=== PATIENT | female | born 1940 | race Caucasian/White ===

== ENCOUNTER → 2018-05-14 15:14 | Outpatient (CLI) | payer MEDICARE, SELFPAY ==
--- NOTE | 2018-05-14 | DI.RAD.S_ITS ---
PROCEDURE: XR ANKLE LT MIN 3V INDICATIONS: LEFT ANKLE INJURY TECHNIQUE: 3 views of the ankle were acquired. COMPARISON: None. FINDINGS: Bones: No dislocations. Ankle mortise is normally aligned. No suspicious bony lesions. There is a diagonal fracture across the base of the lateral malleolus with moderate overlying soft tissue swelling. The ankle mortise joint is not abnormally widened, but the fracture plane is displaced laterally by approximately 1.5-2 mm. Soft tissues: No tibiotalar joint effusion. Achilles tendon appears normal. IMPRESSION: Acute diagonal fracture across the base of the lateral malleolus with overlying soft tissue swelling and mild malalignment. Dictated by: Stanislav Kan M.D. on 05/14/2018 at 15:59 Approved by: Stanislav Kan M.D. on 05/14/2018 at 16:00
== END ==
PROVIDERS: Family Provider Physician Assistant; PCP Physician Assistant; Visit Provider Internal Medicine
DX: S82.62XA Displaced fracture of lateral malleolus of left fibula, initial encounter for closed fracture (principal)
CPT/HCPCS: 73610

== ENCOUNTER → 2018-10-21 14:03 | Outpatient (CLI) | payer MEDICARE, SELFPAY | PROVIDERS: PCP Student in an Organized Health Care Education/Training Program; Visit Provider Student in an Organized Health Care Education/Training Program | DX: Z78.0 Asymptomatic menopausal state (principal) | CPT/HCPCS: 77080 ==

== ENCOUNTER → 2019-03-23 15:40 | Oncology outpatient (ONC) | payer MEDICARE, SELFPAY ==
[2018-03-10 13:02] LABS: Add Manual Diff / Slide Review NO; Basophils Percent Auto 0.7 % (0-2); Eosinophils Percent Auto 0.9 % (2-4); Hematocrit 43.4 % (36-46); Hemoglobin 14.5 g/dL (12.0-16.0); Lymphocytes Percent Auto 44.2 % (25-40); Mean Corpuscular HGB Conc 33.4 % (30-36); Mean Corpuscular Hemoglobin 31.8 PG (26-34); Mean Corpuscular Volume 95.3 fL (80-100); Monocytes Percent Auto 7.7 % (3-14); Neutrophils Absolute Auto 4200 /uL (3000-5900); Neutrophils Percent Auto 46.5 % (50-75); Platelet Count 267 X10^3/uL (150-400); Red Blood Cell Count 4.55 X10^6/uL (4.0-5.2); Red Cell Distribution Width 12.5 % (11.6-14.8); White Blood Cell Count 9.1 X10^3/uL (4.5-11.0)
[2018-03-10 13:17] LABS: Alanine Aminotransferase 41 IU/L (9-52); Albumin 4.6 g/dL (3.5-5.0); Albumin Globulin Ratio 1.8 (1.0-2.8); Alkaline Phosphatase 85 U/L (38-126); Aspartate Aminotransferase 31 IU/L (14-36); Bilirubin Total 0.5 mg/dL (0.2-1.3); Blood Urea Nitrogen 14 mg/dL (7-17); Calcium 9.2 mg/dL (8.4-10.2); Carbon Dioxide 27 mmol/L (22-32); Chloride 98 mmol/L (98-107); Estimated Glomerular Filt Rate > 60.0 mL/min (>60); Globulin 2.6 g/dL (1.7-4.1); Glucose 104 mg/dL (80-110); HEMOLYSIS < 15 (0-50); Potassium 4.5 mmol/L (3.4-5.1); Sodium 139 mmol/L (137-145); Total Protein 7.2 g/dL (6.3-8.2)
[2018-03-10 13:18] VITALS: BP 141/66; PULSE 62; RESP 18; TEMP 36.4; O2SAT 97
--- NOTE | 2018-03-10 13:39 | ONC.APRN.PN ---
PN -Subjective Interval history: The patient is a 77 year old Female who is being seen in the clinic 03/10/2018 for a diagnosis of CLL. Patient was evaluated by Dr. 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 No abnormal T-cell population identified. No abnormal blast or myeloid population identified. Abnormal CD5+B cell was identified. On exam today Kelsie states I think I might be having night sweats, I remeber you told me to watch for them. She goes on to report very infrequent, specifically since putting a heating blanket on her bed in January, she will awake and fell warm with a little sweat on my neck. She denies more severe sweats and states this has only happened a few times recently. She feels immediately better after removing her covers. No soaking of pillow, linens or bedclothes. She reports her appetite is stable, weight is stable. Activity tolerance is unchanged. No unexplained weight loss. No new pain. No new lumps or bumps. No illnesses or infections since her previous visit. Overall feeling quite well. It is noted she has a history of coronary artery disease with a ?cardiac stent?. She was taking Plavix however this has been discontinued she is now taking a daily aspirin 81 mg. She states her PCP Leanne Moy follows her thyroid disease. Past Medical History The patient's past medical history is significant for: 1) CLL 2) Hypothyroidism 3) CAD - Patient Self-Reported Symptoms SR Constitution: Night Sweats SR Cardiovascular issues: Shortness of breath with activity or lying flat SR Skin issues: Dry skin SR Gastrointestinal issues: Heartburn SR Genitourinary issues: Frequent urination, Change in stream SR Musculoskeletal issues: Back or neck pain, Cold hands or feet Home Medications and Allergies Home Medications Medication Instructions Recorded Confirmed Type CHOLECALCIFEROL (VITAMIN D3) 2,000 iu PO QAM #0 04/05/11 History (Vitamin D) levothyroxine [Synthroid] 50 mcg PO QAM #90 tab 07/18/12 Rx atorvastatin [Lipitor] 40 mg PO QDAY #0 04/16/17 History vitamin B complex [B 1 tab PO QDAY #0 04/16/17 History Complex-Vitamin B12] [OCTUVITE] PO Q DAY #0 05/02/17 History Lacto.acidophilus-Bif.animalis 03/10/18 History [Probiotic] timolol 03/10/18 History Exam - Constitutional positive no acute distress, positive average body habitus - Routine HEENT Exam Eye: Present: conjunctivae pink. Absent: conjunctival icterus, scleral injection ENT: Present: mucous membranes moist, oropharynx clear - Routine Neck Exam Present: supple. Absent: lymphadenopathy - Routine Chest/Breast/Axilla Exam Axillae: Absent: lymphadenopathy, mass, tenderness - Routine Respiratory Exam Present: Clear to auscultation bilaterally. Absent: rales, rhonchi, wheezes - Routine Cardiovascular Exam Present: RRR, S1, S2. Absent: murmur, gallop, rubs, JVD - Routine Abdominal Exam Present: soft, normoactive bowel sounds. Absent: tenderness, distended, organomegaly, mass - Routine Extremities Exam Absent: edema, calf tenderness - Routine Skin Exam Present: intact, normal turgor. Absent: petechiae, rash - Routine Neurological Exam Present: alert, oriented X3 - Routine Psychiatric Exam Present: normal affect Results - Labs Laboratory Last Values WBC 9.1 X10^3/uL (4.5-11.0) 03/10/18 12:50 RBC 4.55 X10^6/uL (4.0-5.2) 03/10/18 12:50 Hgb 14.5 g/dL (12.0-16.0) 03/10/18 12:50 Hct 43.4 % (36-46) 03/10/18 12:50 MCV 95.3 fL (80-100) 03/10/18 12:50 MCH 31.8 PG (26-34) 03/10/18 12:50 MCHC 33.4 % (30-36) 03/10/18 12:50 RDW 12.5 % (11.6-14.8) 03/10/18 12:50 Plt Count 267 X10^3/uL (150-400) 03/10/18 12:50 Neut % (Auto) 46.5 % (50-75) L 03/10/18 12:50 Lymph % (Auto) 44.2 % (25-40) H 03/10/18 12:50 [place] % (Auto) 7.7 % (3-14) 03/10/18 12:50 Eos % (Auto) 0.9 % (2-4) L 03/10/18 12:50 Baso % (Auto) 0.7 % (0-2) 03/10/18 12:50 Neut # (Auto) 4200 /uL (0975-0952) 03/10/18 12:50 Sodium 139 mmol/L (137-145) 03/10/18 12:50 Potassium 4.5 mmol/L (3.4-5.1) 03/10/18 12:50 Chloride 98 mmol/L (98-107) 03/10/18 12:50 Carbon Dioxide 27 mmol/L (22-32) 03/10/18 12:50 BUN 14 mg/dL (7-17) 03/10/18 12:50 Creatinine 0.70 mg/dL (0.52-1.04) 03/10/18 12:50 Estimated GFR > 60.0 mL/min (>60) 03/10/18 12:50 BUN/Creatinine Ratio 20.0 (6-22) 03/10/18 12:50 Glucose 104 mg/dL (80-110) 03/10/18 12:50 Calcium 9.2 mg/dL (8.4-10.2) 03/10/18 12:50 Total Bilirubin 0.5 mg/dL (0.2-1.3) 03/10/18 12:50 AST 31 IU/L (14-36) 03/10/18 12:50 ALT 41 IU/L (9-52) 03/10/18 12:50 Alkaline Phosphatase 85 U/L (38-126) 03/10/18 12:50 Total Protein 7.2 g/dL (6.3-8.2) 03/10/18 12:50 Albumin 4.6 g/dL (3.5-5.0) 03/10/18 12:50 Globulin 2.6 g/dL (1.7-4.1) 03/10/18 12:50 Albumin/Globulin Ratio 1.8 (1.0-2.8) 03/10/18 12:50 Assessment and Plan (1) Chronic lymphocytic leukemia Current visit: Yes Status: Acute The patient is an 80-year-old female who carries a diagnosis of CLL. Reassuringly on exam today no clinical signs or symptoms to suggest active disease. CBC is largely unremarkable white count 9.1 hemoglobin 14.5 hematocrit 43.4 platelets 267,000. Neutrophils mildly low at 46.5% lymphocytes mildly elevated at 44.2%. The pts report of mild infrequent sweating since January when she placed a heating blanket on her bed does not constitute a night sweat. No other B symptoms. Pt once again asking for annual visits in this clinic as opposed to more frequently noting she is followed closely by her PCP Bhavya Moy PA-C. This is very reasonable and I agree with the pt. She is to return sooner for any acute changes or if Leanne indicates she requires further eval. Otherwise RTC in 1 year for provider visit cbc cmp we will also check a peripheral flow cytometry. - Time Spent with Patient 25 mins
[2019-03-04 12:40] LABS: Add Manual Diff / Slide Review NO; Basophils Absolute Auto 0 /uL (0-100); Basophils Percent Auto 0.6 % (0-2); Eosinophils Absolute Auto 0 /uL (0-450); Eosinophils Percent Auto 0.6 % (2-4); Hematocrit 41.6 % (36-46); Hemoglobin 14.2 g/dL (12.0-16.0); Lymphocytes Absolute Auto 3400 /uL (1100-4500); Lymphocytes Percent Auto 42.9 % (25-40); Mean Corpuscular HGB Conc 34.1 % (30-36); Mean Corpuscular Hemoglobin 32.8 PG (26-34); Monocytes Absolute Auto 600 /uL (0-900); Monocytes Percent Auto 7.1 % (3-14); Neutrophils Absolute Auto 3800 /uL (1500-7000); Neutrophils Percent Auto 48.8 % (50-75); Platelet Count 227 X10^3/uL (150-400); Red Blood Cell Count 4.34 X10^6/uL (4.0-5.2); Red Cell Distribution Width 12.7 % (11.6-14.8); White Blood Cell Count 7.9 X10^3/uL (4.5-11.0)
[2019-03-04 13:11] LABS: Alanine Aminotransferase 25 IU/L (<35); Albumin 4.5 g/dL (3.5-5.0); Albumin Globulin Ratio 1.9 (1.0-2.8); Alkaline Phosphatase 77 U/L (38-126); Aspartate Aminotransferase 27 IU/L (14-36); Blood Urea Nitrogen 12 mg/dL (7-17); Calcium 9.5 mg/dL (8.4-10.2); Carbon Dioxide 28 mmol/L (22-32); Chloride 98 mmol/L (98-107); Estimated Glomerular Filt Rate > 60.0 mL/min (>60); Globulin 2.4 g/dL (1.7-4.1); Glucose 111 mg/dL (80-110); HEMOLYSIS 42 (0-50); Potassium 4.8 mmol/L (3.4-5.1); Sodium 135 mmol/L (137-145); Total Protein 6.9 g/dL (6.3-8.2)
--- NOTE | 2019-03-23 16:16 | ONC.PN ---
PN -Subjective Interval history: ID/CC: 78 year old with CLL History of Present Illness: The patient is a 78 year old female. She was diagnosed with CLL/SLL on 04/16/2017 with flowcytomery. No abnormal T-cell population identified. No abnormal blast or myeloid population identified. Abnormal CD5+B cell was identified. Since then she has been on active surveillance. Interim Events: She presents today for scheduled follow up visit. She broke her ankle in 05/2018, and lost 10 lbs and has not gained back. She has pretty good energy level. No night sweats. No fever. No SOB, only when she is doing something hard in the yard, and it is not bad. No CP. No abd pain or bloating. No lumps or bumps. - Patient Self-Reported Symptoms SR Constitution: Night Sweats SR Cardiovascular issues: Shortness of breath with activity or lying flat SR Skin issues: Dry skin SR Gastrointestinal issues: Heartburn SR Genitourinary issues: Frequent urination, Change in stream SR Musculoskeletal issues: Back or neck pain, Cold hands or feet - Additional ROS All systems PM: reviewed and no additional remarkable complaints except as stated Home Medications and Allergies Home Medications Medication Instructions Recorded Confirmed Type CHOLECALCIFEROL (VITAMIN D3) 2,000 iu PO QAM #0 04/05/11 History (Vitamin D) levothyroxine [Synthroid] 50 mcg PO QAM #90 tab 07/18/12 Rx atorvastatin [Lipitor] 40 mg PO QDAY #0 04/16/17 History vitamin B complex [B 1 tab PO QDAY #0 04/16/17 History Complex-Vitamin B12] [OCTUVITE] PO Q DAY #0 05/02/17 History Lacto.acidophilus-Bif.animalis 03/10/18 History [Probiotic] timolol 03/10/18 History Exam Vital signs: Last Vital Signs Temp 97.7 F 03/23/19 16:18 Pulse 69 03/23/19 16:18 Resp 16 03/23/19 16:18 BP 128/71 03/23/19 16:18 Pulse Ox 97 03/23/19 16:18 ECOG 1 Narrative: Gen: WDWN, NAD, pleasant and cooperative. Here by herself. HEENT: NCAT, EOMI, PERRLA, anicteric sclera. Neck: Supple, No palpable thyromegaly or lymphadenopathy. Respiratory: CTAB, no wheezes audible. No JVD Cardiovascular: RRR, S1 and S2 normal, no M/G/R. Abdomen: Soft, NTND, BS normal, no palpable organomegaly Extremities: No LE pitting edema. Lymphatic: no palpable lymph nodes in the neck, axillae, or groins. Neurological: AOx3, CN II-XII grossly intact. No focal motor or sensory deficit. Psychiatric: Good judgment and insight; normal affect; normal thought process; cooperative, no depression, no anxiety. Results - Labs Laboratory Last Values WBC 7.9 X10^3/uL (4.5-11.0) 03/04/19 12:25 RBC 4.34 X10^6/uL (4.0-5.2) 03/04/19 12:25 Hgb 14.2 g/dL (12.0-16.0) 03/04/19 12:25 Hct 41.6 % (36-46) 03/04/19 12:25 MCV 96.0 fL (80-100) 03/04/19 12:25 MCH 32.8 PG (26-34) 03/04/19 12:25 MCHC 34.1 % (30-36) 03/04/19 12:25 RDW 12.7 % (11.6-14.8) 03/04/19 12:25 Plt Count 227 X10^3/uL (150-400) 03/04/19 12:25 Neut % (Auto) 48.8 % (50-75) L 03/04/19 12:25 Lymph % (Auto) 42.9 % (25-40) H 03/04/19 12:25 [place] % (Auto) 7.1 % (3-14) 03/04/19 12:25 Eos % (Auto) 0.6 % (2-4) L 03/04/19 12:25 Baso % (Auto) 0.6 % (0-2) 03/04/19 12:25 Neut # (Auto) 3800 /uL (8963-7220) 03/04/19 12:25 Lymph # (Auto) 3400 /uL (4550-3175) 03/04/19 12:25 [place] # (Auto) 600 /uL (0-900) 03/04/19 12:25 Eos # (Auto) 0 /uL (0-450) 03/04/19 12:25 Baso # (Auto) 0 /uL (0-100) 03/04/19 12:25 Sodium 135 mmol/L (137-145) L 03/04/19 12:25 Potassium 4.8 mmol/L (3.4-5.1) 03/04/19 12:25 Chloride 98 mmol/L (98-107) 03/04/19 12:25 Carbon Dioxide 28 mmol/L (22-32) 03/04/19 12:25 BUN 12 mg/dL (7-17) 03/04/19 12:25 Creatinine 0.60 mg/dL (0.52-1.04) 03/04/19 12:25 Estimated GFR > 60.0 mL/min (>60) 03/04/19 12:25 BUN/Creatinine Ratio 20.0 (6-22) 03/04/19 12:25 Glucose 111 mg/dL (80-110) H 03/04/19 12:25 Calcium 9.5 mg/dL (8.4-10.2) 03/04/19 12:25 Total Bilirubin 1.0 mg/dL (0.2-1.3) 03/04/19 12:25 AST 27 IU/L (14-36) 03/04/19 12:25 ALT 25 IU/L (<35) 03/04/19 12:25 Alkaline Phosphatase 77 U/L (38-126) 03/04/19 12:25 Total Protein 6.9 g/dL (6.3-8.2) 03/04/19 12:25 Albumin 4.5 g/dL (3.5-5.0) 03/04/19 12:25 Globulin 2.4 g/dL (1.7-4.1) 03/04/19 12:25 Albumin/Globulin Ratio 1.9 (1.0-2.8) 03/04/19 12:25 Assessment and Plan (1) Chronic lymphocytic leukemia Overview: Diagnosed with CLL/SLL on 04/16/2017 with flowcytomery. No B-symptoms. She has been on active surveillance. Assessment: I reviewed the lab tests from March 2019 with the patient. Patient has normal white cell count, normal hemoglobin and normal platelet counts. In addition the absolute lympho cell count is also within the normal range. Clinically patient denies any B symptoms. On my physical examination, no lymphadenopathy and no hepatosplenomegaly. I talked with the patient that I would recommend continued active surveillance. Patient said that she would like to follow up with her primary care provider and will call us if there is any new change. I agree with the patient's request Assessment: Follow up with her PCP Call for any concerns or questions.
[2019-03-23 16:18] VITALS: BP 128/71; PULSE 69; RESP 16; TEMP 36.5; O2SAT 97
== END ==
PROVIDERS: Nurse Practitioner Gerontology; Family Provider Physician Assistant; PCP Physician Assistant; Visit Provider Internal Medicine Hematology & Oncology
DX: C91.10 Chronic lymphocytic leukemia of B-cell type not having achieved remission (principal)
CPT/HCPCS: 36415; 80053; 85025; 99214

== ENCOUNTER → 2019-09-18 10:12 | Outpatient (CLI) | payer MEDICARE, SELFPAY ==
[2019-09-18 11:21] LABS: Add Manual Diff / Slide Review NO; Basophils Absolute Auto 100 /uL (0-100); Basophils Percent Auto 0.9 % (0-2); Eosinophils Absolute Auto 100 /uL (0-450); Eosinophils Percent Auto 0.7 % (2-4); Hematocrit 41.7 % (36-46); Hemoglobin 14.3 g/dL (12.0-16.0); Lymphocytes Absolute Auto 3900 /uL (1100-4500); Lymphocytes Percent Auto 52.6 % (25-40); Mean Corpuscular HGB Conc 34.3 % (30-36); Mean Corpuscular Hemoglobin 32.9 PG (26-34); Mean Corpuscular Volume 95.8 fL (80-100); Monocytes Absolute Auto 600 /uL (0-900); Monocytes Percent Auto 7.6 % (3-14); Neutrophils Absolute Auto 2800 /uL (1500-7000); Neutrophils Percent Auto 38.2 % (50-75); Platelet Count 220 X10^3/uL (150-400); Red Blood Cell Count 4.35 X10^6/uL (4.0-5.2); Red Cell Distribution Width 13.1 % (11.6-14.8); White Blood Cell Count 7.3 X10^3/uL (4.5-11.0)
[2019-09-18 11:54] LABS: Alanine Aminotransferase 25 IU/L (<35); Albumin 4.2 g/dL (3.5-5.0); Albumin Globulin Ratio 1.7 (1.0-2.8); Alkaline Phosphatase 85 U/L (38-126); Aspartate Aminotransferase 26 IU/L (14-36); BUN Creatinine Ratio 14.5 (6-22); Blood Urea Nitrogen 9 mg/dL (7-17); Calcium 9.6 mg/dL (8.4-10.2); Carbon Dioxide 29 mmol/L (22-32); Chloride 100 mmol/L (98-107); Cholesterol 178 mg/dL (140-199); Estimated Glomerular Filt Rate > 60.0 mL/min (>60); Globulin 2.5 g/dL (1.7-4.1); Glucose 94 mg/dL (80-110); HDL Cholesterol 67 mg/dL (40-60); HEMOLYSIS < 15 (0-50); LDL Cholesterol Calculated 80 mg/dL (<100); Sodium 135 mmol/L (137-145); Total Protein 6.7 g/dL (6.3-8.2); Triglycerides 154 mg/dL (35-150)
[2019-09-18 12:22] LABS: Thyroid Stimulating Hormone 1.31 uIU/mL (0.47-4.68)
== END ==
PROVIDERS: PCP Student in an Organized Health Care Education/Training Program; Referring Provider Student in an Organized Health Care Education/Training Program; Visit Provider Student in an Organized Health Care Education/Training Program
DX: I25.10 Atherosclerotic heart disease of native coronary artery without angina pectoris (principal); E78.2 Mixed hyperlipidemia; K21.0 Gastro-esophageal reflux disease with esophagitis; C91.11 Chronic lymphocytic leukemia of B-cell type in remission
CPT/HCPCS: 36415; 80053; 80061; 84443; 85025

== ENCOUNTER → 2021-08-08 13:43 | Outpatient (CLI) | payer OTHER, SELFPAY ==
--- NOTE | 2021-08-08 | DI.RAD.S_ITS ---
PROCEDURE: XR LUMBAR SPINE 2-3V INDICATIONS: Sciatica, right side TECHNIQUE: 3 views of the lumbar spine were acquired. COMPARISON: [facility], , L-SPINE 2-3 VIEWS, 02/22/2012, 10:21. FINDINGS: Bones: Rightward curvature of the lumbar spine with multilevel degenerative changes. There is disc disease at L4-5 and L5-S1. Multilevel facet arthrosis. No vertebral body height loss. Soft tissues: Overlying bowel gas pattern is normal. No suspicious soft tissue calcifications. IMPRESSION: 1. No acute abnormality. 2. Degenerative disc disease and facet arthrosis with mild rightward curvature. Dictated by: Wan Garcia M.D. on 08/08/2021 at 15:08 Approved by: Wan Garcia M.D. on 08/08/2021 at 15:10
== END ==
PROVIDERS: PCP Student in an Organized Health Care Education/Training Program; Referring Provider Student in an Organized Health Care Education/Training Program; Visit Provider Student in an Organized Health Care Education/Training Program
DX: M51.16 Intervertebral disc disorders with radiculopathy, lumbar region (principal); M51.17 Intervertebral disc disorders with radiculopathy, lumbosacral region; M47.26 Other spondylosis with radiculopathy, lumbar region; M47.27 Other spondylosis with radiculopathy, lumbosacral region
CPT/HCPCS: 72100

== ENCOUNTER → 2023-08-19 10:29 | Outpatient (CLI) | payer MEDICARE, SELFPAY ==
--- NOTE | 2023-08-19 10:31 | DI.RAD.S_ITS ---
PROCEDURE: XR LUMBAR SPINE MIN 4V INDICATIONS: low back pain TECHNIQUE: 5 views of the lumbar spine were acquired, including bilateral oblique views. [facility] 13:43[facility], 10:21. FINDINGS: Bones: 5 nonrib-bearing vertebrae are present. Slight rightward curvature of the spine. Moderate disc height loss at all levels. Facet arthrosis of L3 through S1. Soft tissues: Overlying bowel gas pattern is normal. No suspicious soft tissue calcifications. Oblique images: No pars defects. IMPRESSION: Moderate, multilevel degenerative disc disease and lower lumbar facet arthrosis. Dictated by: Telly Bruno M.D. on 08/19/2023 at 13:36 Approved by: Telly Bruno M.D. on 08/19/2023 at 13:37
== END ==
PROVIDERS: PCP Student in an Organized Health Care Education/Training Program; Referring Provider Anesthesiology; Visit Provider Anesthesiology
DX: M51.36 Other intervertebral disc degeneration, lumbar region (principal); M47.816 Spondylosis without myelopathy or radiculopathy, lumbar region; M47.817 Spondylosis without myelopathy or radiculopathy, lumbosacral region; M54.50 Low back pain, unspecified
CPT/HCPCS: 72110

== ENCOUNTER 2024-05-14 13:46 | Outpatient (CLI) | payer MEDICARE, SELFPAY ==
[2024-05-14] VITALS (7 sets, daily range): BP systolic 117–170; BP diastolic 63–75; PULSE 65–71; RESP 9–18; TEMP 36.1; O2SAT 97–100
--- NOTE | 2024-05-14 13:48 | DI.RAD.S_ITS ---
PROCEDURE: PAIN L/S TRANSFORAMINAL INJECT INDICATIONS: Right L3/4 and L4/5 TFESI COMPARISON: None. FINDINGS/IMPRESSION: Fluoroscopic spot filming was performed to verify placement of spinal needles at the right L3-L4 and L4-L5 level(s), as labeled on the films. Appropriate location(s) of the needle tip(s) was confirmed by injection of iodinated contrast. Dictated by: Ricky Sheth M.D. on 05/14/2024 at 17:06 Approved by: Ricky Sheth M.D. on 05/14/2024 at 17:06
[2024-05-14] MEDS: MIDAZOLAM 2 MG/2 ML VIAL IV (15:06)
[2024-05-14] MEDS: BUPIVACAINE 0.25% (PF) VIAL 2 ML INJ (15:09)
[2024-05-14] MEDS: DEXAMETHASONE 10 MG/ML VIAL 20 MG INJ (15:09)
[2024-05-14] MEDS: BETAMETHASONE 30 MG/5 ML MDV 12 MG INJ (15:10)
[2024-05-14] MEDS: iopamidoL 15 ML VIAL 3 ML INJ (15:10)
--- NOTE | 2024-05-14 15:24 | P.PCN_ITS ---
Date/Time/Diagnoses Date of procedure: 05/14/24 Time of procedure: 15:24 Pre-procedure diagnosis: 1. FORAMINAL STENOSIS WITH LE SYMPTOMS Post-procedure diagnosis: same Procedure Notes Procedure: 1. FLUOROSCOPICALLY GUIDED CONTRAST CONTROLLED TRANSFORAMINAL EPIDURAL STEROID INJECTION - RIGHT L4/5 TFESI Indications: Kelsie is referred by Dr. Marie for treatment of Foraminal Stenosis with Right LE Symptoms Physician: Braulio Sotomayor Total Fluoroscopy time (seconds): 8 Total sedation minutes: 11 Complications: none Procedure in detail & Post-procedure care: FINDINGS Foraminal Nerve Root Compression secondary to disc disease and facet hypertrophy DESCRIPTION OF PROCEDURE Following review of allergy and review of potential side effects and complications, including, but not necessarily limited to, infection, allergic reaction, local tissue breakdown, stroke, temporary or permanent nerve injury, paralysis, and possible , the patient indicated that the patient understood and agreed to proceed. An informed consent document was signed by the patient, witnessed by a nurse, and placed in the patient's chart. Additionally, other treatment options including medications, modalities, and physical therapy were reviewed with the patient. After review of previous anaesthesic history and IV conscious sedation the patient was deemed safe to proceed with today?s procedure with IV conscious sedation as ASA class II designation. Safety time-out was performed to confirm patient ID, procedure to be performed and site of procedure. IV sedation was accomplished with a combination of 2mg of Versed was administered by the RN after DO order, titrated to patient comfort during the course of the procedure while the patient remained responsive to all verbal commands In the prone position following sterile prep and drape of the lumbar region, the right L4/5 posterior neuroforamen was identified fluoroscopically. The skin was anesthetized via a 25-gauge 1.5-inch needle with 1% lidocaine solution. At this point, a 25-gauge 3.5-inch spinal needle was atraumatically introduced and advanced under fluoroscopic guidance through the posterior right L4/5 neuroforamen to approximately the anterior aspect of the canal. Depth was confirmed on lateral view. Following negative aspiration, injection of approximately 1.5cc of Isovue 200 under live fluoroscopy in the AP view conf irmed excellent flow along the nerve root, into the epidural space without vascular or intrathecal uptake observed Radiological data, including multiple fluoroscopic views of the lumbosacral spine, reveal a spinal needle at the right L4/5 posterior neuroforamen. Subsequent views show flow of contrast material flowing superiorly and inferiorly along the nerve root confirming epidural flow. Subsequently, a test dose of 1.5 cc of 1% lidocaine solution was administered and patient was observed for two minutes for signs or symptoms of complications, including abdominal pain, shortness of breath, bilateral upper or lower extremity weakness, nausea and vomiting, prior to steroid injection. At this point, a total of 2cc or 10mg of dexamethasone and 6mg of betamethasone was injected without incident. The procedure tolerated the procedure well without signs or symptoms of complications prior to transfer to the recovery area continued monitoring without incident. The patient was then transferred to the recovery area where they were observed for an appropriate time after the injection. The patient reported a VAS score of 7 prior to the procedure and a post- procedure VAS of 0. POST OP INSTRUCTIONS The patient was provided a Pain Log to continue to record their response to the target-specific procedure prior to follow-up visit with their referring ysician. Additionally, specific post-injection care instructions and a contact number to our office were provided if concerns arise regarding possible complications associated with the procedure are suspected.
--- NOTE | 2024-05-14 15:25 | P.PCN_ITS ---
Date/Time/Diagnoses Date of procedure: 05/14/24 Time of procedure: 15:25 Pre-procedure diagnosis: 1. FORAMINAL STENOSIS WITH LE SYMPTOMS Post-procedure diagnosis: same Procedure Notes Procedure: 1. FLUOROSCOPICALLY GUIDED CONTRAST CONTROLLED TRANSFORAMINAL EPIDURAL STEROID INJECTION - RIGHT L3/4 TFESI Indications: Praveena is referred by Dr. Marie for treatment of Foraminal Stenosis with right LE Symptoms Physician: Braulio Sotomayor Total Fluoroscopy time (seconds): 8 Total sedation minutes: 11 Complications: none Procedure in detail & Post-procedure care: FINDINGS Foraminal Nerve Root Compression secondary to disc disease and facet hypertrophy DESCRIPTION OF PROCEDURE Following review of allergy and review of potential side effects and complications, including, but not necessarily limited to, infection, allergic reaction, local tissue breakdown, stroke, temporary or permanent nerve injury, paralysis, and possible , the patient indicated that the patient understood and agreed to proceed. An informed consent document was signed by the patient, witnessed by a nurse, and placed in the patient's chart. Additionally, other treatment options including medications, modalities, and physical therapy were reviewed with the patient. After review of previous anaesthesic history and IV conscious sedation the patient was deemed safe to proceed with today?s procedure with IV conscious sedation as ASA class II designation. Safety time-out was performed to confirm patient ID, procedure to be performed and site of procedure. IV sedation was accomplished with a combination of 2mg of Versed was administered by the RN after DO order, titrated to patient comfort during the course of the procedure while the patient remained responsive to all verbal commands In the prone position following sterile prep and drape of the lumbar region, the right L3/4 posterior neuroforamen was identified fluoroscopically. The skin was anesthetized via a 25-gauge 1.5-inch needle with 1% lidocaine solution. At this point, a 25-gauge 3.5-inch spinal needle was atraumatically introduced and advanced under fluoroscopic guidance through the posterior right L3/4 neuroforamen to approximately the anterior aspect of the canal. Depth was confirmed on lateral view. Following negative aspiration, injection of approximately 1.5 cc of Isovue 200 under live fluoroscopy in the AP view conf irmed excellent flow along the nerve root, into the epidural space without vascular or intrathecal uptake observed Radiological data, including multiple fluoroscopic views of the lumbosacral spine, reveal a spinal needle at the right L3/4 posterior neuroforamen. Subsequent views show flow of contrast material flowing superiorly and inferiorly along the nerve root confirming epidural flow. Subsequently, a test dose of 1.5 cc of 1% lidocaine solution was administered and patient was observed for two minutes for signs or symptoms of complications, including abdominal pain, shortness of breath, bilateral upper or lower extremity weakness, nausea and vomiting, prior to steroid injection. At this point, a total of 2cc or 10mg of dexamethasone and 6mg of betamethasone was injected without incident. The patient tolerated the procedure well without signs or symptoms of complications prior to transfer to the recovery area continued monitoring without incident. The patient was then transferred to the recovery area where they were observed for an appropriate time after the injection. The patient reported a VAS score of 7 prior to the procedure and a post-procedure VAS of 0. POST OP INSTRUCTIONS The patient was provided a Pain Log to continue to record their response to the target-specific procedure prior to follow-up visit with their referring phy sician. Additionally, specific post-injection care instructions and a contact number to our office were provided if concerns arise regarding possible complications associated with the procedure are suspected.
== END 2024-05-14 15:52 | disposition home or self-care (01) ==
PROVIDERS: PCP Family Medicine; Referring Provider Physical Medicine & Rehabilitation; Visit Provider Physical Medicine & Rehabilitation
DX: M48.061 Spinal stenosis, lumbar region without neurogenic claudication (principal); M51.16 Intervertebral disc disorders with radiculopathy, lumbar region; M47.26 Other spondylosis with radiculopathy, lumbar region
CPT/HCPCS: 64483; 64484; 99152; J0702; J1100; J2250; J3490

== ENCOUNTER → 2024-10-07 12:20 | Outpatient (CLI) | payer MEDICARE, SELFPAY ==
--- NOTE | 2024-10-07 12:30 | DI.RAD.S_ITS ---
PROCEDURE: XR CHEST 2V INDICATIONS: PREOP,DJD RIGHT HIP TECHNIQUE: 2 views of the chest were acquired. COMPARISON: None. FINDINGS: Heart, mediastinum and pulmonary vascular: Heart is normal in size and configuration. Mediastinum is unremarkable. Pulmonary vascular is normal. Lungs: Clear Pleural spaces: Normal-no effusions or pneumothorax. IMPRESSION: Normal chest. Dictated by: Darci Miramontes M.D. on 10/08/2024 at 12:10 Approved by: Darci Miramontes M.D. on 10/08/2024 at 12:10
== END ==
PROVIDERS: PCP Physician Assistant; Referring Provider Family Medicine; Visit Provider Family Medicine
DX: Z01.818 Encounter for other preprocedural examination (principal); M16.11 Unilateral primary osteoarthritis, right hip
CPT/HCPCS: 71046